=== PATIENT | male | born 1980 | race Two or more races ===

== ENCOUNTER 2024-09-12 15:01 | Emergency (ER) | payer OTHER ==
[~2024-09-12] VITALS: Ht 167.6 cm; Wt 85.0 kg
[2024-09-12 15:20] VITALS: TEMP 98
[2024-09-12] MEDS ORDERED: OXYB-34 PO (15:25)
[2024-09-12] MEDS ORDERED: BACL10TA PO (15:25)
[2024-09-12] MEDS ORDERED: LISI-892 PO (15:25)
[2024-09-12 16:23] VITALS: BP 120/80; PULSE 82; RESP 16; O2SAT 98
== END 2024-09-12 17:14 | disposition home or self-care (01) ==
LOC: EMS 15:01
DX: N31.9 Neuromuscular dysfunction of bladder, unspecified (principal); R33.9 Retention of urine, unspecified; R10.9 Unspecified abdominal pain; I10 Essential (primary) hypertension; E78.5 Hyperlipidemia, unspecified; Z79.899 Other long term (current) drug therapy
CPT/HCPCS: 99283; Z7502